=== PATIENT | male | born 1950 | race Caucasian/White ===

== ENCOUNTER 2017-01-05 07:12 | Inpatient (IN) | payer MEDICARE, OTHER ==
[~2017-01-05] VITALS: Ht 180.3 cm; Wt 77.1 kg
--- NOTE | 2017-03-06 15:32 | NUR ---
HAVE ATTEMPTED TO REACH PT BY PHONE, I WAS NOT AVAILABLE WHEN HE WAS HERE FOR PREADMIT, MULTIPLE ATTEMPTS MADE. MESSAGES LEFT CALLS NOT RETURNED.
--- NOTE | 2017-03-06 15:41 | NUR ---
PREADMIT PT CARE NOTE THIS IS A 66 YEAR OLD MALE THAT IS SCHEDULED TO HAVE A RIGHT TOTAL KNEE REPLACEMENT ON 03/09/[address] MELVI RODRIGUEZ. 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 THERE ARE 3 STEPS INTO THE 5TH WHEEL. STATES IT HAS A WALK IN SHOWER AND HANDHELD SHOWER HEAD AND A SEAT IN IT. PT STATES HE HAS HIS OWN FRON WHEELED WALKER THAT HE WILL BRING WITH HIM. PT STATES HE DID ATTEND [facility] OP PT [facility] AND IS PLANNING ON GOING TO [facility] OP PT WHEN HE GOES HOME FROM THE HOSPITAL. PT STATES HE ALREADY HAS HIS FIRST APPT SET UP FOR 03/17/17 AT 0730. PT DENIES FURTHER NEEDS, OR QUESTIONS, WILL FOLLOW PT DURING HIS STAY IN HOSPITAL. 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
--- NOTE | 2017-03-08 16:39 | NUR ---
Per PCP chart notes patient takes no chronic medications. Will verify at admittance
[2017-03-09] MEDS ORDERED: VITAMIN C100 MG PO (06:04)
[2017-03-09] MEDS ORDERED: IRON18 MG PO (06:04)
--- NOTE | 2017-03-09 08:58 | NUR ---
03/09/17 0858 Karen Higuera 1296-PATIENT ARRIVED TO PACU ON 6L MASK O2 SAT 100% PATIENT AWAKE DENIES PAIN OR NAUSEA. REPORTS NUMBNESS TO LEGS. SPINAL LEVEL AT L1. PALPABLE RIGHT PULSE GOOD CAP REFILL. CRYO CUFF PLACED. DRESSING CDI.
--- NOTE | 2017-03-09 09:40 | NUR ---
PT ARRIVED TO ROOM 116 AT THIS TIME, ALERT AND ORIENT AT THIS TIME. NO PAIN OR NAUSEA. SPOUSE AT BEDSIDE.
--- NOTE | 2017-03-09 11:43 | NUR ---
PT REPORTS NO PAIN OR NAUSEA AT THIS TIME. CMS INTACT AT THIS TIME. GOOD CAP REFILL BILAT FEET/TOES
--- NOTE | 2017-03-09 13:09 | NUR ---
PATIENT RESTING IN BED. FRESH ICE WATER GIVEN. ICE IN CRYO. CALL BUTTON IN REACH NO OTHER NEEDS AT THIS TIME.
--- NOTE | 2017-03-09 14:49 | NUR ---
PT BLADDER SCANNED FOR 945ML IN BLADDER, NO URGE TO VOID WILL PLACE MILLER CATH PER STANDING ORDER
--- NOTE | 2017-03-09 15:37 | NUR ---
16 YORUBA MILLER CATH PLACED 9ML STERILE WATER PLACED TO BULB. PT TOLERATED WELL. DRAINING WELL WNL. 900ML RETURNED IMMEDIATELY. PT UP IN RECLIENR AT THIS TIME. TOLERATING REGULAR DIET WELL NO NAUSEA. DRESSING CDI
--- NOTE | 2017-03-09 17:27 | NUR ---
PT TO ROOM 116 AT 0940 THIS AM. HE HAS BEEN ALERT AND ORIENTED THROUGHOUT SHIFT. NO NAUSEA, TOLERATING REGULAR DIETARY WELL. NO ITCHING, NO PAIN TO REPORT OVER SHIFT. HE HAS BEEN UP WITH PHYSICAL THERAPY, UP IN RECLINER NOW. MILLER PLACED DUE TO BLADDER SCAN OF 945ML. PT TOLERATED WELL. DRESSING CLEAN, DRY, INTACT. CRYO CUFF/TEDS/HEELS/SCDS IN PLACE.
--- NOTE | 2017-03-09 20:11 | NUR ---
PT UP IN CHAIR, WATCHING TV. SALINE LOCKED IV. PT HAS NO COMPLAINTS.
--- NOTE | 2017-03-09 20:58 | NUR ---
PT ASSESSMENT COMPLETE. PT DENIES ANY PAIN, N/V, SOB. SATS 99% ON ROOM AIR PER CONTINUOUS PULSE OXIMETER. PT NOW SALINE LOCKED, IV FLUSHES WELL, PATENT AND INTACT. DRESSING TO RIGHT KNEE IS C/D/I, PEA-SIZED SHADOWING NOTED TO MEPILEX DRESSING. CRYO CUFF/SCD/TEDS IN PLACE. PT REFUSING HEEL PROTECTORS. PT AMBULATED FROM CHAIR TO BED WITH SBA USING FWW, STEADY ON FEET, AMBULATES WELL. MILLER IN PLACE, ORANGE COLORED URINE DRAINING WELL. CALL LIGHT WITHIN REACH. PT DENIES ANY FURTHER NEEDS AT THIS TIME.
--- NOTE | 2017-03-09 23:15 | NUR ---
PT WAKES EASILY WHEN STAFF WALK IN ROOM. SCHEDULED ANCEF GIVEN, IV PATENT AND INTACT. DRESSING TO KNEE IS C/D/I, UNCHANGED. CRYO CUFF/TEDS/SCD IN PLACE. PT RATES PAIN 1-2/10, STATES TOLERABLE AND DENIES ANY NEED FOR PRN PAIN MEDICATION. PT DENIES ANY ITCHING. SATS 98% ON ROOM AIR PER CONTINUOUS PULSE OXIMETER. MILLER DRAINING ORANGE COLORED URINE. CALL LIGHT WITHIN REACH. PT DENIES ANY FURTHER NEEDS AT THIS TIME.
--- NOTE | 2017-03-10 02:30 | NUR ---
PT WOKE EASILY WHEN I WALKED IN THE ROOM. PT RATES PAIN 2-3/10, SCHEDULED TORADOL AND OXYCODONE GIVEN. DRESSING TO RIGHT KNEE IS C/D/I, UNCHANGED. CRYO CUFF REFILLED AND IN PLACE. TEDS/SCD IN PLACE. CALL LIGHT WITHIN REACH. PT DENIES ANY FURTHER NEEDS AT THIS TIME.
--- NOTE | 2017-03-10 05:19 | NUR ---
PT HAD AN UNEVENTFUL NIGHT. PT RATES PAIN 1-3/10, SCHEDULED TORADOL AND OXYCODONE GIVEN. PT HAS DENIED ANY NEED FOR PRN PAIN MEDICATION THIS SHIFT. PT TOLERATING REGULAR DIET WELL. DRESSING TO KNEE IS C/D/I, HAS PEA-SIZED SHADOWING NOTED TO MEPILEX, UNCHANGED THIS SHIFT. CRYO CUFF/TEDS/SCD IN PLACE. PT ON ROOM AIR, PULSE OX IN PLACE, SATS 98-99%. MILLER DRAINING WELL, QUANTITY SUFFICIENT, WILL BE DC'D THIS AM. IV SALINE LOCKED. PT AMBULATING WITH SBA USING FWW, TOLERATING AMBULATION WELL.
--- NOTE | 2017-03-10 08:43 | NUR ---
PT UP TO RECLINER THIS AM, CONSUMED 100% OF BREAKFAST REPORTS PAIN INCREASED TO 3-4/10 WITH ACTIVITY. PT ADMINSTERED SCHEDULED OXYCODONE 5MG PO AND ONE TAB NORCO PRN.PT WILL BE UP WITH PHYSICAL THERAPY IN THE NEXT HOUR. PT ALERT AND ORIENTED. DISCUSSED WITH PT CONCERNS ABOUT STEPS AT [place] HE LIVES.
--- NOTE | 2017-03-10 09:58 | OR ---
[facility] [address], [place] [address] Signed PREOPERATIVE DIAGNOSIS Severe degenerative joint disease, right knee. POSTOPERATIVE DIAGNOSIS Severe degenerative joint disease, right knee. PROCEDURE PERFORMED Right total knee arthroplasty with computer navigation. SURGEON: Sim Morales MD CHECK EXAMINER: MAYKEL Black ANESTHESIA: Spinal. BLOOD LOSS: Minimal. TOURNIQUET TIME: 65 minutes. IMPLANTS Kamille triathlon size 6 with a 9 mm insert and a 38 mm patella. BRIEF HISTORY Casie is a 66-year-old gentleman with progressive worsening of bilateral arthritis. Risks and benefits were discussed with him of operative intervention after conventional treatment had failed and he elected to proceed. DESCRIPTION OF PROCEDURE Once consent was obtained, he was taken to the operating room. After adequate anesthesia, he was placed on operating table. All downside pressure points well padded. Hip bump was placed. The right leg was placed in well-padded proximal thigh tourniquet. The leg was prepped and draped in a standard sterile fashion and exsanguinated using Esmarch bandage. Tourniquet inflated to 250 mmHg. Standard anterior approach through curved incision was taken through skin and subcutaneous tissue. Median parapatellar arthrotomy was performed. The infrapatellar fat pad was excised. The MCL was elevated to the posterior medial corner. The medial meniscus was pretty much absent. ACL was transected. PCL was found to be intact. Anterior horn lateral meniscus was transected. The navigation guide was pinned to the distal femur and the femur was registered with the computer. The distal cutting block was then set to the mechanical axis and the distal femoral cut was made. The femur sized to a 6, the AP cutting block was then pinned in line with epicondylar axis and the anterior posterior chamfer cuts were made. Osteophytes removed. Electronically Signed By: SIM MORALES MD 03/10/17 075 Electronically Signed By: SIM MORALES MD 03/11/17 0741 PATIENT NAME: CASIE DOYLE OPERATIVE REPORT DATE OF : 46 PHYSICIAN: SIM MORALES MD REPORT #: [id number] REPORT IS CONFIDENTIAL AND NOT TO BE RELEASED WITHOUT AUTHORIZATION [facility] [address] [place] [id number] Signed Attention was turned to proximal tibia. The navigation guide was pinned and the cutting block was pinned in neutral alignment. The bone was excised after cutting the tibia with care taken to protect the patellar tendon and MCL. The posterior osteophytes removed off the femur. Posterior release performed. Flexion-extension gaps were sized and found to be symmetric at 9. The knee was taken through range of motion and found to be stable after placement of the trials. The patella was cut sized and drilled for 38 mm patella. The femoral lug holes were drilled and the tibial was finished using the keel punch. The trials were then removed. The bone surfaces were pulse lavaged, packed with dry Ray-Fuad. Cement was mixed and reached proper consistency, displaced all bone surfaces and all implants. Tibia was impacted into position 1st followed by the femur. The polyethylene was snapped into position and all excess cement was removed. The knee was extended and nicely loaded. The patella was clamped and again all excess cement was removed. The cement was allowed to harden. Once it hardened sufficiently, the knee was flexed and the remaining cement was removed using osteotomes. The knee was pulse lavaged at intervals throughout the procedure. A total of 3 L antibiotic irrigation was used. The periarticular soft tissues were injected with 100 mL Ropivacaine and Toradol mixture. The arthrotomy was then closed using #1 Stratafix subcutaneous tissue with 0 Stratafix and skin with paul. Wound was dressed with a Mepilex Ag dressing, ABD and Peyman wrap. He tolerated the procedure well. All sponge, needle, instrument counts were correct. Sim Morales MD BA/Radhal /[id number] Electronically Signed By: SIM MORALES MD 03/10/17 0751 Electronically Signed By: SIM MORALES MD 03/11/17 0741 PATIENT NAME: CASIE DOYLE OPERATIVE REPORT DATE OF : 46 PHYSICIAN: SIM MORALES MD REPORT #: [id number] REPORT IS CONFIDENTIAL AND NOT TO BE RELEASED WITHOUT AUTHORIZATION
--- NOTE | 2017-03-10 11:18 | NUR ---
PATIENT UP TO BATHROOM TO TRY TO VOID. FRESH WATER GIVEN. ICE IN CRYO. NO OTHER NEEDS AT THIS TIME.
--- NOTE | 2017-03-10 12:26 | NUR ---
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 HE IS ALERT, ORIENTED AND PAIN IS NOT AN ISSUE NOW. HE HAS HAD MORNING P.T., AND IS PLANNING ON AFTERNOON SESSION. TIRE FIXER IN TO DO VITALS, WILL RETURN. EXTENDED A BLESSING
--- NOTE | 2017-03-10 13:28 | NUR ---
PT UP AMBULATING IN HALLS WITH PHYSICAL THERAPY. REPORTS THAT HE IS FEELING THE URGE TO VOID AND WILL ATTEMPT AFTER WORKING WITH PHYSICAL THERAPY
--- NOTE | 2017-03-10 14:37 | NUR ---
PATIENT SITTING UP IN BED WITH BY HIS SIDE. VOIDED 250MLS. CALL BUTTON IN REACH.ICE WATER ON TABLE ICE IN CRYO.
--- NOTE | 2017-03-10 14:49 | NUR ---
PT WAS ABLE TO VOID 200ML.ALSO HAD BM
--- NOTE | 2017-03-10 14:58 | NUR ---
PT REPORTS PAIN IS LIKE 1-2/10 AT REST.
--- NOTE | 2017-03-10 17:49 | NUR ---
PT REQUEST PAIN COVERAGE, PT GIVEN ONE TAB NORCO AT THIS TIME, PT NOT HAPPY THAT TWO NORCO NOT ADMINISTERED. WILLMONITOR FOR EFFECTIVENESS AND SEDATION PT HAS BEEN SLEEPING MOST OF SHIFT
--- NOTE | 2017-03-10 17:59 | NUR ---
PT TOELRATING REGULAR DIET NO NAUSEA, GOOD PAIN COVERAGE. ONE PERSON STANDBY ASSIST WITH [employer]. WORKED WITH PHYSICAL THERAPY X2, COMPLETED STAIRS. VOIDING WELL NOW. DRESSING HAS VERY SMALL SHADOW AT DISTAL PORTION OF ARTURO WRAP. CRYO CUFF/SCDS/TEDS/HEELS ON. HAD BM TODAY.
--- NOTE | 2017-03-10 18:49 | NUR ---
PT IS SITTING UP IN BED JUST FINISHED EATING DINNER PT DID NOT NEED ANYTHING ELSE
--- NOTE | 2017-03-10 19:30 | NUR ---
PT ASSESSMENT COMPLETE. PT RATES PAIN 4/10, DENIES PRN MEDICATION AT THIS TIME. SATS 99% ON ROOM AIR. PT SALINE LOCKED, IV PATENT AND INTACT. DRESSING TO RIGHT KNEE HAS NOTED PEA-SIZED SHADOWING TO MIDDLE OF MEPILEX AND SMALL AREA OF SHADOWING NOTED TO DISTAL PORTION OF DRESSING, OTHERWISE C/D/I. CRYO CUFF/TEDS/SCD IN PLACE. PT VOIDING WELL IN URINAL. PT DENIES ANY N/V, SOB. CALL LIGHT WITHIN REACH. PT DENIES ANY FURTHER NEEDS AT THIS TIME.
--- NOTE | 2017-03-10 23:00 | NUR ---
PT SLEEPING, RR EVEN AND UNLABORED. PT APPEARS COMFORTABLE AT THIS TIME. URINAL AT BEDSIDE, PT VOIDING WELL. CALL LIGHT WITHIN REACH. CRYO CUFF/TEDS/SCD IN PLACE.
--- NOTE | 2017-03-11 01:20 | NUR ---
PT CALLED REQUESTING PAIN MEDICATION. PT RATES RIGHT KNEE PAIN 5/10, SCHEDULED OXYCODONE AND 1 TAB PRN NORCO GIVEN. DRESSING TO KNEE IS UNCHANGED, SHADOWING NOTED TO MEPILEX. CRYO CUFF REFILLED AND IN PLACE. TEDS/SCD IN PLACE. PT VOIDING WELL IN URINAL. CALL LIGHT WITHIN REACH. PT DENIES ANY FURTHER NEEDS AT THIS TIME.
--- NOTE | 2017-03-11 03:09 | NUR ---
PT RATES PAIN IN RIGHT KNEE 2/, SCHEDULED TORADOL GIVEN. PT DENIES ANY FURTHER NEEDS AT THIS TIME. CALL LIGHT WITHIN REACH.
--- NOTE | 2017-03-11 04:34 | NUR ---
PT SLEEPING, RR EVEN AND UNLABORED. PT APPEARS COMFORTABLE AT THIS TIME. CALL LIGHT WITHIN REACH. CRYO CUFF/TEDS/SCD IN PLACE.
--- NOTE | 2017-03-11 06:51 | NUR ---
PT HAD AN UNEVENTFUL NIGHT. SLEPT MOST OF NIGHT. RECEIVED PRN NORCO x1, OTHERWISE ONLY RECEIVED SCHEDULED TORADOL AND OXYCODONE. DRESSING HAS SMALL AMOUNT OF SHADOWING NOTED TO MEPILEX AND DISTAL PORTION OF ARTURO WRAP. PT AMBULATES WITH SBA USING FWW, TOLERATES WELL. PT DENIED ANY N/V THIS SHIFT, TOLERATING PO WELL. VOIDING WITHOUT DIFFICULTY. HAD BM THIS SHIFT. CRYO CUFF/TEDS/SCD IN PLACE. PT PLANS TO DC HOME TODAY.
--- NOTE | 2017-03-11 07:40 | NUR ---
BEDSIDE REPORTE RECEIVED FROM BRITTANY. ASSUMING CARE AT THIS TIME. PATIENT RESTING IN BED REPORTED 5/10 PAIN IN THE RIGHT LEG. DR RODRIGUEZ WAS IN ROOM EARLIER TO SEE AND DISCUSS PLAN OF CARE WITH PATIENT. PLAN TO DC HOME TODAY.
[2017-03-11] MEDS ORDERED: XARELTO10 MG PO (08:01)
[2017-03-11] MEDS ORDERED: HYDROCODON-ACE1 EA11 PO (08:01)
[2017-03-11] MEDS ORDERED: OXYCODONE HCL5 MG PO (08:02)
[2017-03-11] MEDS ORDERED: MIRALAX17 GM PO (08:02)
--- NOTE | 2017-03-11 08:05 | NUR ---
PATIENT SITTING IN BED EATING BREAKFAST. PATIENT WAS MEDICATED FOR PAIN. DRESSING ON RIGHT KNEE REMOVED BY DR RODRIGUEZ. ALL YOLANDA IN PLACE, DRY BLOOD NOTED OVER THE YOLANDA. PERIPHERAL PULSES PALPABLE. NO ACUTE DISTRESS.
--- NOTE | 2017-03-11 09:51 | NUR ---
PATIENT AWAKE IN BED. FILLED CRYO CUP. CLEANED ROOM AND EMTYED GARBAGE. CHANGED PATIENTS GOWN DUE TO BLOOD FROM INCISION. LET NURSE LEE ANN KNOW. CALL LIGHT IN REACH.
--- NOTE | 2017-03-11 12:11 | NUR ---
CALL TO PATIENT AT HOME. PATIENT WAS ABLE TO REMOVE HIS IV, APPLY A PRESSURE DRESSING. PATIENT DENIED ANY BLEEDING OR PAIN AT IV INSERTION SITE. PATIENT REPORTED, "I'VE TAKEN OUT MAY IV'S IN THE PAST, I KNOW HOW TO DO IT."
--- NOTE | 2017-03-11 14:00 | NUR ---
FAXED CHART NOTES TO [facility] OP PT THAT INCLUDED FACESHEET, H AND P, OP NOTE, CONSULT, MEDS, OT AND PT EVAL AND NOTES.
--- NOTE | 2017-03-12 11:28 | DS ---
[facility] [address] [place], [place] [address] Signed DATE OF DISCHARGE: 03/11/17 ADMISSION DIAGNOSIS: Degenerative joint disease, right knee. DISCHARGE DIAGNOSIS: Degenerative joint disease, right knee. PROCEDURE PERFORMED: Right total knee arthroplasty. BRIEF HISTORY Casie is a 66-year-old gentleman with progressive worsening of his arthritis. He had undergone nonoperative treatment without substantial relief. Risks and benefits of operative treatment discussed with him. He elected to proceed. Once consent was obtained, he was taken to the operating room and underwent the above-named procedure. He tolerated this well. He was taken to the recovery room and subsequently to the orthopedic floor. He was placed on Oxycodone q.6h. and Hydrocodone, which managed his pain well. He was seen by Physical Therapy, able to ambulate up and down the hallway, up and down the stairs by the day of discharge. He was kept on DVT prophylaxis with SCDs, TEDs, and Xarelto 10 mg p.o. daily. He will be discharged to home on these medications in addition to his routine home meds. He will be seen by outpatient physical therapy earlier next week. He will follow up with me in 14 days. Should he have any problems, he will notify me immediately. Sim Morales MD BA/Stuart /[id number] Electronically Signed By: SIM MORALES MD 03/12/17 1128 PATIENT NAME: CASIE DOYLE DISCHARGE SUMMARY DATE OF : 46 PHYSICIAN: SIM MORALES MD REPORT #: [id number] REPORT IS CONFIDENTIAL AND NOT TO BE RELEASED WITHOUT AUTHORIZATION
[2017-04-10] MEDS ORDERED: METOPROLOL TART25 MG PO (10:48)
[2017-04-10] MEDS ORDERED: ASPIRIN EC325 MG PO (10:49)
== END 2017-03-11 11:00 | disposition home or self-care (01) | DRG 470 ==
LOC: DSVR 03-09 05:45 → MS 03-09 05:45
PROVIDERS: ADMIT Specialist
PROC: 3E0T3CZ (ICD-10-PCS; 2017-03-09)
PROC: 0SRC0J9 Replacement of Right Knee Joint with Synthetic Substitute, Cemented, Open Approach (ICD-10-PCS; principal; 2017-03-09 06:45)
DX: M17.11 Unilateral primary osteoarthritis, right knee (principal); G89.18 Other acute postprocedural pain; F17.210 Nicotine dependence, cigarettes, uncomplicated; Z71.6 Tobacco abuse counseling
CPT/HCPCS: 01402; 36415; 51798; 64447; 64450; 76942; 80048; 85025; 94762; 97110; 97116; 97161; 99406; C1713; C1776; J0690; J1100; J1885; J2274; J2405; J2704; J2795; J3010; J7120

== ENCOUNTER 2017-04-20 09:14 | Emergency (ER) | payer MEDICARE, OTHER ==
[~2017-04-20] VITALS: Ht 180.3 cm; Wt 74.2 kg
[~2017-04-20 09:14] MED LIST: ASPIRIN EC325 MG PO; HYDROCODON-ACE1 EA11 PO; IRON18 MG PO; METOPROLOL TART25 MG PO; MIRALAX17 GM PO; OXYCODONE HCL5 MG PO; VITAMIN C100 MG PO; XARELTO10 MG PO
[2017-04-20] MEDS ORDERED: TOPROL XL50 MG PO (10:19)
--- NOTE | 2017-04-20 20:34 | EKG ---
[facility] [address] [facility] [place] [address] Signed Atrial fibrillation with rapid ventricular response with premature ventricular or aberrantly conducted complexes Left anterior fascicular block Abnormal ECG When compared with ECG of 09-APR-2017 11:13, No significant change was found Confirmed by AURA DAVIES MD ([id number]) on 04/20/2017 8:33:58 PM Electronically Signed By: AURA DAVIES MD 04/20/17 2034 PATIENT NAME: CASIE DOYLE MARISSA Electrocardiogram DATE OF : 46 PHYSICIAN: AURA DAVIES MD REPORT #: [id number] REPORT IS CONFIDENTIAL AND NOT TO BE RELEASED WITHOUT AUTHORIZATION
== END 2017-04-20 10:39 | disposition home or self-care (01) ==
LOC: ED 09:14
DX: M79.604 Pain in right leg (principal); I48.91 Unspecified atrial fibrillation; Z87.891 Personal history of nicotine dependence; Z88.5 Allergy status to narcotic agent; Z79.899 Other long term (current) drug therapy; Z79.82 Long term (current) use of aspirin
CPT/HCPCS: 73560; 93005; 93010; 99283

== ENCOUNTER 2017-05-04 08:30 | Observation (INO) | payer MEDICARE, OTHER ==
[~2017-05-04] VITALS: Ht 180.3 cm; Wt 78.0 kg
[~2017-05-04 08:30] MED LIST changes: +TOPROL XL50 MG PO
--- NOTE | 2017-05-04 10:59 | NUR ---
05/04/17 1059 Josy Lee 1051 - pt arrived to pacu, opa in place. pt responding to stimuli
--- NOTE | 2017-05-04 11:56 | NUR ---
PT TO FLOOR FROM PACU, TO ROOM 112 VIA BED, ACCOMPANIED BY KAYLA CONSULTING SALES EXECUTIVE AND DAUGHTER AND . ARRIVED TO FLOOR AT 1150. RECIEVED BEDSIDE REPORT FROM TATO GARZA. PEDAL PULSES STRONG, CAPILARY REFILL LESS THAN 3 SECONDS, DRESSING TO RIGHT KNEE C/D/I. PT ABLE TO MOVE TOES AND FEET, IS ABLE TO FEEL WHEN TOES AND FEET ARE TOUCHED, BUT REPORTS THAT SENSATION IS STILL SOMEWHAT DIMINISHED. DENEIS PAIN, DENIES NAUSEA.
--- NOTE | 2017-05-04 12:00 | NUR ---
PATIENT IN ROOM CRYO ON. CALL BUTTON IN REACH. RN IN ROOM. FRESH ICE WATER GIVEN.
--- NOTE | 2017-05-04 12:59 | NUR ---
PT IN BED, HOB ELEVATED, TALKING WITH DAUGHTER AND . DENIES PAIN OR NAUSEA, IS ABLE TO MOVE FEET AND TOES, PEDAL PULSES EASILY PALPABLE. RIGHT KNEE DRESSING C/D/I, BRACE IN PLACE. CAPILARY REFILL LESS THAN 3 SECONDS. IS ABLE TO FEEL TOUCH TO FEET, TOES, REPORTS SENSATION REMAINS SLIGHTLY DIMINISHED.
--- NOTE | 2017-05-04 13:55 | NUR ---
PT DENIES PAIN, DENIES NAUSEA. AWAKE, ALERT, ORIENTED X 4. ATE 100% OF REGULAR LUNCH. ABLE TO MOVE FEET AND TOES. REPORTS FEET AND TOES HAVE SOMEWHAT DIMINISHED SENSATION, BUT HE IS ABLE TO FEEL DULL TOUCH. SPINAL IS RESOLVING.
--- NOTE | 2017-05-04 14:41 | NUR ---
PATIENT SITTING UP IN BED TALKING TO . FRESH ICE WATER GIVEN. ICE IN CRYO. CALL BUTTON IN REACH. NO OTHER NEEDS AT THIS TIME.
--- NOTE | 2017-05-04 16:00 | NUR ---
PATIENT SITTING UP IN BED WATCHING TV. CALL BUTTON IN REACH.
--- NOTE | 2017-05-04 18:26 | NUR ---
PATIENT SITTING UP IN BED WATCHING TV. CALL BUTTON IN REACH. FRESH ICE WATER GIVEN. ICE IN CRYO. NO OTHER NEEDS AT THIS TIME.
--- NOTE | 2017-05-04 19:50 | NUR ---
RECEVIED REPORT FROM DAY RNJUANIS. PT AWAKE, AND WATCHING TV. CALL LIGHT WITHIN REACH.
--- NOTE | 2017-05-04 21:30 | NUR ---
ASSESSMENT COMPLETED. PT STATES HE CAN FEEL HIS LEGS, FEEL TOUCH, ABLE TO MOVE LEGS. INQUIRED ABOUT HIM MOVING HIS RIGHT LEG, HE STATES THAT THE "PT PERSON TOLD HIM TO DO WHAT HE IS DOING". RT LEG HAS BRACE IN PLACE, BOTH LEGS WITH HEEL PROTECTORS. LT LEG WITH IFRAH HOSE AND SCD IN PLACE. PT DENIES PAIN AT THIS TIME. MILLER PATENT WITH CLARI/ORANGE URINE. STATES HE COULDN'T PEE CAUSE HE COULDN'T FEEL DUE TO THE EPIDURAL. ACEWRAP RT KNEE IN PLACE, WITH CRYCUFF IN PLACE. CALL LIGHT WITHIN REACH. NO OTHER NEEDS.
--- NOTE | 2017-05-04 22:01 | NUR ---
PT WATCHING TV AT THIS TIME. DENIES PAIN OR NEEDS. CALL LIGHT WITHIN REACH.
--- NOTE | 2017-05-04 23:50 | NUR ---
PT LIGHTS OFF, WELL TV. RESP EVEN AND UNLABORED.
--- NOTE | 2017-05-05 02:19 | NUR ---
CRYO CUFF REFILLED.
--- NOTE | 2017-05-05 02:21 | NUR ---
PT WOKE EASILY. STATES HE HAS BEEN SLEEPING OFF AND ON. HAS BEEN DOING HIS "EXCERCISES" WHEN HE IS AWAKE. SUGGESTED HE TAKE IT EASY AND GET SOME SLEEP, HE REPLIED THAT PT WANTED A "100" OF THESE SPECIFIC LEG EXCERSISES DONE. REMINDED HIM SLEEP IS GOOD TOO. DENIES PAIN IN RT KNEE. DRESSING REMAINS INTACT, WITH ICE/CRYOCUFF IN PLACE. HEEL PROTECTORS BILAT, WITH SCD ON LT LEG WELL IFRAH HOSGelacio. PT STATES THAT HIS LEGS ARE NOT NUMB OR TINGLY. STATES THE FEELING CAME BACK COUPLE HOURS AGO. URINE REMAINS CLARI/ORANGE. CALL LIGHT WITHIN REACH, HAS NO OTHER NEEDS AT THIS TIME.
--- NOTE | 2017-05-05 04:15 | NUR ---
PT WITH EYES CLOSED, RESP EVEN AND UNLABORED.
--- NOTE | 2017-05-05 06:18 | NUR ---
PT AWAKE AND VISITING. STATES THAT HE THOUGHT FEELING WAS BACK IN KNEE EARLIER, BUT NOW SAYS KNEE IS FEELING TINGLY ON THE LATERAL SIDE OF THE KNEE, CAN FEEL PRESSURE ON TOP OF KNEE BUT DENIES PAIN. SCD AND IFRAH ON LT LEG, HEEL PROTECTOR ON BOTH WITH ACEWRAP IN PLACE AND BRACE ON THE RIGHT KNEE. PAUL PUT OUT 625 THIS SHIFT.
--- NOTE | 2017-05-05 06:28 | NUR ---
REFILLED CRYO CUFF AND ICE WATER.
--- NOTE | 2017-05-05 07:00 | NUR ---
CONTACTED DR RODRIGUEZ TO GET CLARIFICATION IF HE WANTED THE PAUL DC'D TODAY. RECEIVED ORDER TO DC PAUL.
--- NOTE | 2017-05-05 07:27 | NUR ---
MILLER REMOVED AT THIS TIME. PT TOLERATED WELL. 9ML STERILE WATER REMOVED FROM BULB.
--- NOTE | 2017-05-05 08:05 | OR ---
[facility] [address], [place] [address] Signed DATE OF PROCEDURE: 05/04/17 PREOPERATIVE DIAGNOSIS: Left quad tendon rupture. POSTOPERATIVE DIAGNOSIS: Left quad tendon rupture. PROCEDURE PERFORMED Repair of quad tendon, left total knee. Cultures, deep. SURGEON: Sim Morales MD [employer] TEACHER: Micheline Muñoz PA-C. Micheline was present for the entire surgery and was critical for positioning, retraction, and wound closure. ANESTHESIA: Spinal. BLOOD LOSS: Minimal. TOURNIQUET TIME: 60 minutes. SPECIMENS The deep cultures and synovial fluid panel were sent from the OR; however, no results were obtained. BRIEF HISTORY Casie is a 67-year-old gentleman who underwent total knee arthroplasty about 3 weeks ago. Rehabbing well until he sustained a fall and had progressive worsening active extension of the knee. Ultrasound confirmed a quad tendon rupture. Risks and benefits of operative treatment discussed with him and he elected to proceed. Because there is an association with deep infection, we did also discuss deep cultures and the possibility for need to wash out and polyethylene exchange. He understood and wished to proceed. DESCRIPTION OF PROCEDURE Once consent was obtained, he was taken to the operating room. After adequate anesthesia, he was placed on operating table. All downside pressure points were well padded. A well-padded proximal thigh tourniquet was placed along with a hip bump. The leg was then prepped and draped in standard sterile fashion. Leg was exsanguinated using Esmarch bandage. Tourniquet inflated to 250 mmHg. Previous incision was marked out and upper two-third of this incision was carried through skin and subcutaneous tissue. The defect was palpable. The defect was encountered immediately. Prior to incision, we did Electronically Signed By: SIM MORALES MD 05/05/17 0805 PATIENT NAME: CASIE DOYLE OPERATIVE REPORT DATE OF : 46 PHYSICIAN: SIM MORALES MD REPORT #: [id number] REPORT IS CONFIDENTIAL AND NOT TO BE RELEASED WITHOUT AUTHORIZATION [facility] [address], [place] [address] Signed aspirate 20 mL of straw-colored fluid. This was sent off for synovial fluid panel and culture. The extensor mechanism was identified and the quad tendon was isolated and then the flaps were developed. All necrotic tissue was debrided as we went. The rupture was approximately 8 cm long. It started in the superior medial corner of the patella and extended proximally. There was no evidence of infection. Deep tissue cultures were taken and sent to the lab. The tendon ends were freshened and the knee was washed out with 3 L of antibiotic irrigation. We then injected the periarticular soft tissues. We did wait for the synovial fluid panel to come back; however, it still has not come back. The synovial layer was also developed. The synovium was then closed using 0 Stratafix. The tendon was then closed using #2 FiberWire. Two drill holes were placed in the superior medial quadrant of the patella, avoiding the patellar component. The tendon was repaired quite tightly, was stable with no gaping up to 90 degrees of flexion. We then closed the subcutaneous tissue with #1 strata fix, skin with 2-0 nylon using an interrupted horizontal mattress suture. The wound was dressed with Mepilex Ag dressing, ABD, and Peyman wrap. He was placed in a hinged knee brace at 0-30 degrees. Taken to recovery room in satisfactory condition. All sponge, needle, instrument counts were correct. Sim Morales MD BA/Stuart /[id number] cc: Javier Lisa MD Electronically Signed By: SIM MORALES MD 05/05/17 0805 PATIENT NAME: CASIE DOYLE MARISSA OPERATIVE REPORT DATE OF : 46 PHYSICIAN: SIM MORALES MD REPORT #: [id number] REPORT IS CONFIDENTIAL AND NOT TO BE RELEASED WITHOUT AUTHORIZATION
[2017-05-05] MEDS ORDERED: NUCYNTA50 MG PO (08:19)
[2017-05-05] MEDS ORDERED: HYDROMORPHONE HC4 MG PO (08:19)
--- NOTE | 2017-05-05 08:34 | NUR ---
Pt. up to chair, elevated leg with pillow, placed cryo back on knee,pt finished breakfast, set him up with fresh water, ordered him a root beer, and call light in place
--- NOTE | 2017-05-05 08:37 | NUR ---
PT UP TO RECLINER, CONSUMED 100% OF BREAKFAST. REPORTS PAIN 1-2/10 SAID NO NEED FOR PAIN COVERAGE AT THIS TIME. NO NAUSEA, FLATUS POSITIVE. STANDBY ASSIST WITH FWW, BRACE TO RIGHT KNEE, CRYO CUFF, DRESSING CDI
--- NOTE | 2017-05-05 10:00 | NUR ---
PT UP AMBUALTING IN HALLS WITH PHYSICAL THERAPY
--- NOTE | 2017-05-05 10:34 | NUR ---
PT HAD 75ml OUT WHEN THEY TOOK OUT THE MILLER AND HAS NOT BEEN ABLE TO VOID SINCE THEN. I ASKED HIM IF HE WAS READY TO TRY AND HE SAID HE DOESNT FEEL LIKE HE HAS TO YET.
--- NOTE | 2017-05-05 12:51 | NUR ---
CHECKED ON PT TO SEE IF HE NEEDED ANYTHING. SAID HE IS FINE, AND FELT LIKE HE COULD VOID. SET THE URINAL IN REACH FOR HIM
--- NOTE | 2017-05-05 13:37 | NUR ---
bladder scanned patient for >1L. dr butts called. orders received for flomax and rodas cath overnight.
--- NOTE | 2017-05-05 14:09 | NUR ---
PT SITTING IN CHAIR, WAITING FOR LUNCH. HE HOPES TO BE DC'D TODAY. PT IS ALERT, ORIENTED AND HAS A VERY POSITIVE ATTITUDE. EXTENDED A BLESSING, HE THANKED ME FOR THE VISIT
--- NOTE | 2017-05-05 14:58 | NUR ---
PT REPORTS PAIN 3/10 AT THIS TIME, MILLER DRAINING WELL. PT ADMINISTERED SCHEDULED NUCYNTA AT THIS TIME.
--- NOTE | 2017-05-05 15:51 | NUR ---
FILLED PTS CRYO CUFF UP WITH ICE, HELPED HIM CONNECT TO THE INTERNET. HE IS DOING FINE. IS AT BEDSIDE VISITING WITH HIM. HE HAS ORDERED DINNER.
--- NOTE | 2017-05-05 19:00 | NUR ---
SHIFT REPORT RECIEVED. PATIENT RESTING IN BED. STATES PAIN IS WELL CONTROLLED AT THIS TIME. CRYO IN PLACE WITH SUFFICIENT ICE. CALL LIGHT IN REACH.
--- NOTE | 2017-05-05 19:25 | NUR ---
PT HAS BEEN UP AMBULATING IN HALLS WITH PHYSICAL THERAPY, TOLERATED WELL. ONE PERSON STANDBY ASSIST. TOLERATING DIET WELL, NO NAUSEA. FAILED VOIDING TRIAL TODAY, GAVE ORDER TO REPLACE MILLER-START FLOMAX. PT HAS HAD GOOD PAIN MANAGEMENT OVER SHIFT. PRODUCING GOOD QWUANTITY OF URINE OUT, FLATUS POSITIVE. DRESSING CDI. CMS INTACT. GOOD CAP REFILL.
--- NOTE | 2017-05-05 19:45 | NUR ---
PATIENT ASSESSMENT COMPLETED AND EVEING MEDS GIVEN PER ORDER. PATIENT IS AAOX3. REPORTS PAIN AT 3/10, DENIES NEED FOR PRN PAIN MEDS. LUNGS ARE CLEAR. NO NAUSEA, GOOD APPETITE, BOWEL SOUNDS ACTIVE. MILLER IN PLACE, OUTPUT QS. RIGHT KNEE IS ARTURO WRAPPED, IN BRACE, EVELATED AND THE CRYO IS IN PLACE WITH SUFFICIENT ICE. SCD AND IFRAH HOSE ON LEFT LEG. PEDAL PULSES ARE STRONG AND EVEN BILATERALLY. NO NUMBNESS OR TINGLING IN LOWER EXTREMITIES. PATIENT DENIES FEELING ANY PALPITATIONS TODAY. PATIENT DENIES FURTHER NEEDS AT THIS TIME. CALL LIGHT IN REACH.
--- NOTE | 2017-05-05 21:48 | NUR ---
PATIENT RESTING IN BED, WATCHING TV. STATES THAT PAIN HAS SLIGHTLY INCREASED BUT WOULD LIKE TO WAIT UNTIL AT LEAST 2200 FOR PRN PAIN MEDS. CRYO IS IN PLACE ON RIGHT KNEE WITH BRACE. SCD AND IFRAH HOSE ON LEFT LEG. CALL LIGHT IN REACH.
--- NOTE | 2017-05-05 22:16 | NUR ---
PATIENT SITTING UP ON SIDE OF THE BED. IS FINDING IT DIFFICULT TO GET COMFORTABLE WITH THE BRACE ON. RATED PAIN AT 5/10. PRN PAIN MEDS GIVEN. CRYO IN PLACE. PATIENT REPOSITIONED FOR COMFORT. RESTING BACK IN BED. DENIES FURTHER NEEDS AT THIS TIME. CALL LIGHT IN REACH.
--- NOTE | 2017-05-06 00:10 | NUR ---
PATIENT RESTING IN BED. EYES CLOSED. RR16. CRYO AND BRACE IN PLACE ON RIGHT KNEE. SCD & IFRAH HOSE ON RIGHT LEG. CALL LIGHT IN REACH.
--- NOTE | 2017-05-06 02:02 | NUR ---
PATIENT RESTING IN BED. EYES CLOSED. RR16. CALL LIGHT IN REACH.
--- NOTE | 2017-05-06 02:27 | NUR ---
SCHEDULED PAIN MEDS GIVEN PER ORDER. PATIENT APPEARED TO BE SLEEPING, AROUSED EASILY TO VOICE. PATIENT RATED PAIN AT 4/10. CRYO AND BRACE IN PLACE ON RIGHT KNEE. IFRAH HOSE AND SCD ON LEFT LEG. MILLER IN PLACE, OUTPUT QS. PATIENT HAS NO REQUEST. CALL LIGHT IN REACH.
--- NOTE | 2017-05-06 04:36 | NUR ---
PATIENT RESTED WELL THROUGHOUT THE SHIFT. PRN PAIN MEDS GIVEN X1. CRYO IN PLACE ON RIGHT KNEE WITH BRACE. ARTURO WRAP IN PLACE AND NO DRAINAGE NOTED. PATIENT IS SBA W/FWW. TOE TOUCH ON RIGHT LEG. ELEVATE EXTREMITY IN BED. MILLER TO BE DC AT 0600. TOLERATING REGULAR DIET.
--- NOTE | 2017-05-06 05:05 | NUR ---
PATIENT RESTING IN BED. EYES CLOSED. RR 16. CALL LIGHT IN REACH.
--- NOTE | 2017-05-06 06:18 | NUR ---
CRYO CUFF AND ICE WATER REFILLED.
--- NOTE | 2017-05-06 06:29 | NUR ---
PAUL MAYO AT AT 0625. PATIENT TOLERATED WELL. PATIENT UP TO THE BATHROOM. SBA W/FWW. TOE TOUCH ON RIGHT LEG. PATIENT USES WALKER AND FOLLOWS DIRECTIONS WELL. PATIENT IN BATHROOM, WILL CALL WHEN DONE.
--- NOTE | 2017-05-06 06:39 | NUR ---
ASSISTED PATIENT FROM BATHROOM TO CHAIR. PATIENT IS HAVING COFFEE. CALL LIGHT WITHIN REACH.
--- NOTE | 2017-05-06 07:20 | NUR ---
BEDSIDE REPORT RECEIVED FROM TATO COLLIER. PT AWAKE, SITTING UP IN CHAIR, ON PERSONAL COMPUTER. PT HAS BRACE ON, LEGS ELEVATED. PT STATES PAIN IS 3.5/10 AT THIS TIME, REFUSES PRN PAIN MEDICATIONS, STATES PAIN IS TOLERABLE. PT HAS NOT URINATED, HAS WATER AND COFFEE. CALL LIGHT WITH PT. WILL CONTINUE TO MONITOR.
--- NOTE | 2017-05-06 08:00 | NUR ---
PATIENT SITTING UP IN CHAIR EATING BREAKFAST. CALL BUTTON IN REACH. CRYO ON. FRESH ICE WATER GIVEN. NO OTHER NEEDS AT THIS TIME.
--- NOTE | 2017-05-06 08:05 | NUR ---
ADMINISTERED SCHEDULED NUCYNTA, PT REPORTING PAIN OF 3-4/10 IN RIGHT LEG. PT UP IN CHAIR, EATING BREAKFAST, LEG ELEVATED. PT STATES HE DOES NOT FEEL NEED TO VOID AT THIS TIME, MADE PLAN TO TRY TO VOID AT 0900. CALL LIGHT WITH PT, WILL CONTINUE TO MONITOR.
--- NOTE | 2017-05-06 08:40 | NUR ---
PATIENT UP TO BATHROOM TO VOID. BED BATH AND ORAL CARE DONE.
--- NOTE | 2017-05-06 08:52 | NUR ---
PT CALLED AND HAD VOIDED 200ML LIGHT YELLOW URINE. WOULD NOW LIKE TO GO HOME. WILL WORK ON PAPERWORK
[2017-05-06] MEDS ORDERED: TAMSULOSIN HCL0.4 MG PO (08:58)
--- NOTE | 2017-05-06 09:07 | NUR ---
PT ASSESSMENT COMPLETE. PT UP IN CHAIR, LUNGS CLEAR THROUGHOUT ALL LOBES. PT HAS HAD TWO BMS TODAY, BOWEL TONES ACTIVE X 4. PT RIGHT LEG WRAPPED WITH ARTURO WRAP, BRACE IN PLACE, CRYO CUFF ON. CSM INTACT BILATERALLY UPPER AND LOWER EXTREMITIES, NO EDEMA NOTED. PT STATES PAIN IS 4/10 IN RIGHT LEG. PT HAS CALL LIGHT, WILL CONTINUE TO MONITOR.
--- NOTE | 2017-05-06 09:51 | NUR ---
VERBAL AND WRITTEN INSTRUCTIONS FOR DISCHARGE PROVIDED TO PT BY RN AND PHARMACIST JAE. PT HAD NO ADDITIONAL QUESTIONS. PT BELONGINGS RETURNED TO PT. IV SITE D/C WNL. VITAL SIGNS STABLE. PT WAITING FOR FOR RIDE HOME. CALL LIGHT IN REACH.
== END 2017-05-06 10:55 | disposition home or self-care (01) ==
LOC: DS 08:30 → MS 11:35 → DS 11:35 → MS 11:35 → DS 11:35 → MS 05-06 10:55
PROVIDERS: ADMIT Specialist
PROC: 3E0T3BZ Introduction of Anesthetic Agent into Peripheral Nerves and Plexi, Percutaneous Approach (ICD-10-PCS; 2017-05-04)
PROC: 0LQM0ZZ Repair Left Upper Leg Tendon, Open Approach (ICD-10-PCS; principal; 2017-05-04 11:30)
DX: S76.112A Strain of left quadriceps muscle, fascia and tendon, initial encounter (principal); F17.200 Nicotine dependence, unspecified, uncomplicated; I10 Essential (primary) hypertension; G89.18 Other acute postprocedural pain; Z88.5 Allergy status to narcotic agent; W19.XXXA Unspecified fall, initial encounter; Z96.652 Presence of left artificial knee joint; Z79.82 Long term (current) use of aspirin; Z79.899 Other long term (current) drug therapy
CPT/HCPCS: 01250; 64447; 76942; 87070; 87075; 87205; 89051; 89060; 94762; 96374; 96376; 97110; 97116; 97161; G0378; G8978; G8979; G8980; J0690; J1100; J1885; J2250; J2274; J2405; J2704; J2765; J2795; J3010; J7120

== ENCOUNTER 2017-09-24 06:55 | Day surgery (SDC) | payer MEDICARE, OTHER ==
[~2017-09-24] VITALS: Ht 180.3 cm; Wt 88.9 kg
[~2017-09-24 06:55] MED LIST changes: +HYDROMORPHONE HC4 MG PO; +NUCYNTA50 MG PO; +TAMSULOSIN HCL0.4 MG PO
--- NOTE | 2017-09-24 10:20 | NUR ---
PT ALERT, ORIENTED AND SUPPORTED BY HIS . PT SEEMED PREPARED, COMMENTED ON HOW MUCH HE APPRECIATED DR VIGIL'S CALL LAST NIGHT. MADE PT AWARE OF THE ORDER OF EVENTS TO FOLLOW. PT REQUESTED PRAYER, WILL FOLLOW NEEDED
--- NOTE | 2017-09-24 12:13 | NUR ---
09/24/17 Kaiden3 Karen Higuera 1209-PATIENT ARRIVED TO PACU ON 4L OM AWAKE DENIES PAIN OR NAUSEA. DROWSY RR EVEN. SR WITH PAC.
[2017-09-24] MEDS ORDERED: HYDROMORPHONE HC4 MG PO (12:27)
[2017-09-24] MEDS ORDERED: IBUPROFEN600 MG PO (12:27)
[2017-09-24] MEDS ORDERED: MAPAP325 MG PO (12:27)
--- NOTE | 2017-09-24 12:48 | OR ---
[facility] [address], [place] [address] Signed DATE OF OPERATION: 09/24/2017 SURGEON: Coral Vigil MD PREOPERATIVE DIAGNOSES: 1. Right posterior thoracic soft tissue mass (6 cm). 2. Right moravian area soft tissue mass (2 cm). POSTOPERATIVE DIAGNOSES: 1. 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 2. A 2 cm right moravian lipoma. PROCEDURES: 1. Excision of subfascial mass central posterior thorax. 2. Excision of lipomatous mass of right moravian area. ANESTHESIA: Local with monitored anesthesia care, Dhaval Segura CRNA. Local anesthesia is 0.25% Marcaine with epinephrine. INDICATION: This 67-year-old white man is a patient of Dr. Javier Lisa of [place], [place]. He has a soft tissue mass in his central posterior thorax, which is increasingly uncomfortable for him. Additionally, notes a soft tissue mass of the right moravian area. Another mass was noted at the angle of mandible on the left side. An ultrasound was performed of that to ascertain. It did not represent submandibular gland or parotid gland neoplasm. The ultrasound performed yesterday shows the lesion to be consistent with lipoma. That lesion is not particularly symptomatic and is located in the submandibular space posteriorly. He was admitted at this time to undergo excision of posterior thoracic mass as well as the mass over the right moravian area, but we will hold in advance for the time being the submandibular mass on the left. He understands as does his the risks of bleeding, infection, recurrent mass, and failure to cure his pain symptoms. FINDINGS: In the posterior thorax area, the soft tissue mass was clearly consistent with a lipoma. It was extended down to the posterior thoracic fascia. It was at least 6 cm in length and about 4 cm in width and 2 cm in thickness. The lesion in the right moravian area was behind the temporal artery. The temporal artery Electronically Signed By: CORAL VIGIL MD 09/24/17 1248 PATIENT NAME: CASIE DOYLE OPERATIVE REPORT DATE OF : 46 REPORT #: [id number] PHYSICIAN: CORAL VIGIL MD PCP: JAVIER LISA MD REPORT IS CONFIDENTIAL AND NOT TO BE RELEASED WITHOUT AUTHORIZATION [facility] [address], [place] [address] Signed was dissected free and good hemostasis was assured at the completion of the procedure with complete excision of that mass as well. It was most consistent with lipoma as well. DESCRIPTION OF PROCEDURE: The patient was brought to the operating room and placed in the lateral position right side up. He was given intravenous sedation with propofol infusional technique. Preoperative antibiotic Ancef was given. Posterior thorax was prepared with a chlorhexidine solution and draped sterilely. A 0.25% Marcaine with epinephrine was injected along the line of skin tension and a field block anesthetic administered in this way. An incision was made mostly vertically oriented along the line of skin tension. Dissection was carried through the dermis. It was initially not easy to distinguish the capsule of the lipomatous mass from the subcutaneous tissue with meticulous care. This was ultimately established. Dissection was begun on the left side 1st and taken down to the posterior muscular fascia. A smooth walled lipomatous appearing mass was noted. Dissection was then undertaken to the right side similarly identifying the appropriate plane. The lesion was freed from the posterior thoracic fascia with electrocautery. Hemostasis was assured in the central portion with 2-0 Vicryl suture. The lesion once excised measured approximately 6 cm x 4 cm and at least 2 cm in thickness. Irrigation was undertaken ultimately assuring hemostasis. The wound was closed with interrupted 2-0 Vicryl in deep subcutaneous layer and running subcuticular 3-0 Vicryl for the skin. A drain was deemed unnecessary. Steri-Strips were applied as was a Mepilex silver sponge dressing and an OpSite. The drapes were taken down and separate preparation undertaken the moravian area. Clipping was undertaken as appropriate and the area was prepared with a chlorhexidine solution and draped sterilely. Once again, a 0.25% Marcaine with epinephrine was injected locally along the line of skin tension. A small incision made and dissection carried through the dermis. Using sharp dissection, the mass was dissected free from surrounding tissues. The twigs of the temporal artery were noted to be intimately associated with the mass. This was dissected free with all due care, ultimately excising the mass completely. Hemostasis was assured with 2-0 Vicryl in the region of some branches from the temporalis artery. Once hemostasis was assured, the wound was closed with interrupted 2-0 Vicryl in deep dermal layer and Steri-Strips were applied. The patient was ultimately allowed to emerge from sedation and taken to recovery room in good condition having suffered no complications. Sponge, needle, and instrument counts reported as correct x3. Coral Vigil MD Electronically Signed By: CORAL VIGIL MD 09/24/17 1248 PATIENT NAME: CASIE DOYLE MARISSA OPERATIVE REPORT DATE OF : 46 REPORT #: [id number] PHYSICIAN: CORAL VIGIL MD PCP: JAVIER LISA MD REPORT IS CONFIDENTIAL AND NOT TO BE RELEASED WITHOUT AUTHORIZATION [facility] [address] [place] [address] Signed /JACQUELIN /[id number] cc: Javier Lisa MD Copies: JAVIER LISA MD ~ Electronically Signed By: CORAL VIGIL MD 09/24/17 1248 PATIENT NAME: CASIE DOYLE OPERATIVE REPORT DATE OF : 46 REPORT #: [id number] PHYSICIAN: CORAL VIGIL MD PCP: JAVIER ILSA MD REPORT IS CONFIDENTIAL AND NOT TO BE RELEASED WITHOUT AUTHORIZATION
--- NOTE | 2017-09-24 20:30 | EKG ---
[facility] [address] [facility] [place] [address] Signed Sinus rhythm with occasional premature ventricular complexes Left axis deviation Inferior infarct , age undetermined Abnormal ECG When compared with ECG of 20-APR-2017 09:29, Sinus rhythm has replaced Atrial fibrillation Vent. rate has decreased BY 36 BPM Inferior infarct is now present ST now depressed in Inferior leads T wave inversion now evident in Inferior leads Confirmed by ROBERTH CRABTREE MD ([id number]) on 09/24/2017 8:30:14 PM Electronically Signed By: ROBERTH CRABTREE MD 09/24/172029 PATIENT NAME: CASIE DOYLE Electrocardiogram DATE OF : 46 PHYSICIAN: ROBERTH CRABTREE MD REPORT #: [id number] REPORT IS CONFIDENTIAL AND NOT TO BE RELEASED WITHOUT AUTHORIZATION
== END 2017-09-24 13:22 | disposition home or self-care (01) ==
LOC: DS 06:55
PROVIDERS: Surgery
PROC: 0JB70ZZ Excision of Back Subcutaneous Tissue and Fascia, Open Approach (ICD-10-PCS; 2017-09-24)
PROC: 0JB10ZZ Excision of Face Subcutaneous Tissue and Fascia, Open Approach (ICD-10-PCS; principal; 2017-09-24 09:15)
DX: D17.1 Benign lipomatous neoplasm of skin and subcutaneous tissue of trunk (principal); D17.0 Benign lipomatous neoplasm of skin and subcutaneous tissue of head, face and neck; M19.90 Unspecified osteoarthritis, unspecified site; Z88.5 Allergy status to narcotic agent; Z96.651 Presence of right artificial knee joint; Z98.890 Other specified postprocedural states; Z79.899 Other long term (current) drug therapy
CPT/HCPCS: 00300; 88304; 88305; 88307; 93005; 93010; J0690; J1644; J2704; J3010; J7120

== ENCOUNTER 2018-01-15 15:27 | Emergency (ER) | payer MEDICARE, OTHER ==
[~2018-01-15] VITALS: Ht 180.3 cm; Wt 88.9 kg
[~2018-01-15 15:27] MED LIST changes: +IBUPROFEN600 MG PO; +MAPAP325 MG PO
== END 2018-01-15 16:51 | disposition home or self-care (01) ==
LOC: ED 15:27
DX: H53.9 Unspecified visual disturbance (principal); Z87.891 Personal history of nicotine dependence; Z88.5 Allergy status to narcotic agent
CPT/HCPCS: 99282

== ENCOUNTER 2018-09-03 13:50 | Emergency (ER) | payer MEDICARE, OTHER ==
[~2018-09-03] VITALS: Ht 180.3 cm; Wt 83.9 kg
--- NOTE | 2018-09-03 15:57 | EKG ---
[facility] [address] [facility] [place] [address] Signed Atrial flutter with variable AV block Left axis deviation Inferior infarct (cited on or before 24-SEP-2017) Possible Anterior infarct , age undetermined Abnormal ECG When compared with ECG of 24-SEP-2017 09:39, Significant changes have occurred Confirmed by ROBERTH CRABTREE MD ([id number]) on 09/03/2018 3:56:43 PM Electronically Signed By: ROBERTH CRABTREE MD 09/03/18 1557 PATIENT NAME: CASIE DOYLE Electrocardiogram DATE OF : 46 PHYSICIAN: ROBERTH CRABTREE MD REPORT #: [id number] REPORT IS CONFIDENTIAL AND NOT TO BE RELEASED WITHOUT AUTHORIZATION
[2018-09-03] MEDS ORDERED: TOPROL XL50 MG PO ×2 (16:05→16:06)
== END 2018-09-03 16:22 | disposition home or self-care (01) ==
LOC: ED 13:50
DX: I48.92 Unspecified atrial flutter (principal); I48.91 Unspecified atrial fibrillation; Z87.891 Personal history of nicotine dependence; Z88.5 Allergy status to narcotic agent; Z79.899 Other long term (current) drug therapy
CPT/HCPCS: 71045; 80053; 80061; 84484; 85025; 85610; 85730; 93005; 93010; 96374; 99285-25

== ENCOUNTER 2018-09-09 08:36 | Emergency (ER) | payer MEDICARE, OTHER ==
[~2018-09-09] VITALS: Ht 180.3 cm; Wt 83.9 kg
--- OUTSIDE RECORDS SUMMARY | 2018-09-09 08:40 | XMS ---
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 EPascale VISIT COUNT (12 MO.) 3 [facility] TOTAL 3 NOTE: Visits indicate total known visits. 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
[2018-09-09] MEDS ORDERED: DICLOFENAC POTA50 MG PO (08:47)
--- NOTE | 2018-09-09 13:26 | EKG ---
[facility] [address] [place] [address] Signed Sinus bradycardia Left axis deviation T wave inversion in Lead 3 and aVF, consider inferior ischemia When compared with ECG of 09/03/2018 Sinus rhythm has replaced atrial flutter. T wave inversions are new. Confirmed by ROBERTH CRABTREE MD ([id number]) on 09/09/2018 1:26:21 PM Electronically Signed By: ROBERTH CRABTREE MD 09/09/18 1326 PATIENT NAME: CASIE DOYLE MARISSA Electrocardiogram DATE OF : 46 PHYSICIAN: ROBERTH CRABTREE MD REPORT #: [id number] REPORT IS CONFIDENTIAL AND NOT TO BE RELEASED WITHOUT AUTHORIZATION
[2018-09-09] MEDS ORDERED: COZAAR50 MG PO (13:51)
[2018-09-09] MEDS ORDERED: XARELTO20 MG PO (13:51)
== END 2018-09-09 14:10 | disposition home or self-care (01) ==
LOC: ED 08:36
DX: I11.0 Hypertensive heart disease with heart failure (principal); I50.9 Heart failure, unspecified; I48.0 Paroxysmal atrial fibrillation; Z87.891 Personal history of nicotine dependence; Z88.5 Allergy status to narcotic agent; Z79.899 Other long term (current) drug therapy
CPT/HCPCS: 71046; 80053; 83880; 84484; 85025; 85379; 93005; 93010; 93306; 99285-25

== ENCOUNTER 2019-06-20 15:22 | Emergency (ER) | payer MEDICARE, OTHER ==
[~2019-06-20] VITALS: Ht 180.3 cm; Wt 84.4 kg
[~2019-06-20 15:22] MED LIST changes: +COZAAR50 MG PO; +DICLOFENAC POTA50 MG PO; +XARELTO20 MG PO
--- OUTSIDE RECORDS SUMMARY | 2019-06-20 15:24 | XMS ---
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 Care History Medical/Surgical 09/14/2018 [facility] - Patient is currently established with [facility]. If patient is seen in the ED during business hours. Please contact CHWs at [facility]. Care Recommendation: This patient has had 5 or more Emergency Department visits in the last 12 months.\T\nbsp; Patient requires education on the scope and purpose of the ED as an acute care provider not a Primary Care Provider and should not be utilized for chronic conditions.\T\nbsp; These are guidelines and the provider should exercise clinical judgment when providing care. 09/10/2018 [facility] - CHW RECEIVED CASE MANAGEMENT CONSULT- HELP PATIENT WITH PCP. - CHW PROVIDED [facility] WITH ED VISIT NOTES AND REQUESTED FOR HIGH PRIORITY. - CLINIC STATED THEY ARE SCHEDULING OUT IN OCTOBER FOR ESTABLISHING CARE APTS, THEY WILL SEE IF THEY CAN GET PATIENT SET UP WITH [facility] FOR AN EARLIER APT. RECORDS HAVE TO BE REVIEWED FIRST BEFORE APT CAN BE SET. Robinson VISIT COUNT (12 MO.) 3 JUAN Pascal TOTAL 3 NOTE: Visits indicate total known visits. 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
[2019-06-20] MEDS ORDERED: ELIQUIS5 MG PO (15:33)
[2019-06-20] MEDS ORDERED: NITROFURANTOIN100 M1 PO (15:34)
--- NOTE | 2019-06-21 07:36 | EKG ---
[facility] [address] [facility] [place] [address] Signed Atrial fibrillation with rapid ventricular response Left axis deviation Septal infarct , age undetermined Abnormal ECG When compared with ECG of 09-SEP-2018 08:41, Significant changes have occurred Confirmed by AURA DAVIES MD ([id number]) on 06/21/2019 7:36:17 AM Electronically Signed By: AURA DAVIES MD 06/21/19 0736 PATIENT NAME: CASIE DOYLE MARISSA Electrocardiogram DATE OF : 46 PHYSICIAN: AURA DAVIES MD REPORT #: [id number] REPORT IS CONFIDENTIAL AND NOT TO BE RELEASED WITHOUT AUTHORIZATION
== END 2019-06-20 19:39 | disposition home or self-care (01) ==
LOC: ED 15:22
DX: I48.91 Unspecified atrial fibrillation (principal); N39.0 Urinary tract infection, site not specified; Z88.5 Allergy status to narcotic agent; Z79.899 Other long term (current) drug therapy
CPT/HCPCS: 36415; 71045; 80053; 83605; 83880; 84484; 85025; 85610; 85730; 93005; 93010; 96361; 96374; 99291; 99292; J7030

== ENCOUNTER 2019-06-28 10:35 | Emergency (ER) | payer MEDICARE, OTHER ==
[~2019-06-28] VITALS: Ht 180.3 cm; Wt 84.4 kg
[~2019-06-28 10:35] MED LIST changes: +ELIQUIS5 MG PO; +NITROFURANTOIN100 M1 PO
--- OUTSIDE RECORDS SUMMARY | 2019-06-28 10:38 | XMS ---
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 Care History Medical/Surgical 06/21/2019 [facility] Patient has follow up appt. with Dr. Aguero today 06/21/2019 09/14/2018 [facility] - Patient is currently established with [facility] [place] [facility]. If patient is seen in the ED during business hours. Please contact CHWs at [facility]. Care Recommendation: This patient has had 5 or more Emergency Department visits in the last 12 months.\T\nbsp; Patient requires education on the scope and purpose of the ED as an acute care provider not a Primary Care Provider and should not be utilized for chronic conditions.\T\nbsp; These are guidelines and the provider should exercise clinical judgment when providing care. 09/10/2018 [facility] - W RECEIVED CASE MANAGEMENT CONSULT- HELP PATIENT WITH PCP. - W PROVIDED [facility] WITH ED VISIT NOTES AND REQUESTED FOR HIGH PRIORITY. - CLINIC STATED THEY ARE SCHEDULING OUT IN OCTOBER FOR ESTABLISHING CARE APTS, THEY WILL SEE IF THEY CAN GET PATIENT SET UP WITH [facility] FOR AN EARLIER APT. RECORDS HAVE TO BE REVIEWED FIRST BEFORE APT CAN BE SET. [facility]. [facility] (12 MO.) [facility] NOTE: Visits indicate total known visits. ED/UCC VISIT TRACKING (12 MO.) [facility]28[facility]2019 10:[facility] COMPLAINT: - SOB 06/20/2019 15:22 [facility] [place] TYPE: Emergency COMPLAINT: - RAPID-IRREGULAR HEART RATE, HAS AFIB DIAGNOSES: - Shortness of breath - Allergy status to narcotic agent status - Urinary tract infection, site not specified - Other snf (current) drug therapy - Unspecified atrial fibrillation 09/09/2018 08:37 [facility] [place] TYPE: Emergency COMPLAINT: - CHEST PAIN/SOB/NAUSEA DIAGNOSES: - Personal history of nicotine dependence - Heart failure, unspecified - Paroxysmal atrial fibrillation - Other snf (current) drug therapy - Hypertensive heart disease with heart failure - Allergy status to narcotic agent status - Dyspnea, unspecified 09/03/2018 13:50 [facility] [place] TYPE: Emergency COMPLAINT: - CHEST PAIN/SHORTNESS OF BREATH DIAGNOSES: - Unspecified atrial fibrillation - Other snf (current) drug therapy - Allergy status to narcotic agent status - Personal history of nicotine dependence - Tachycardia, unspecified - Unspecified atrial flutter INPATIENT VISIT TRACKING (12 MO.) No inpatient visits to display in this time frame [email or web address]
[2019-06-28] MEDS ORDERED: BACTRIM DS TAB1 EACH PO (10:45)
--- NOTE | 2019-06-28 12:54 | EKG ---
[facility] [address] [facility] [address] [place] [address] Signed Atrial fibrillation with rapid ventricular response Left axis deviation Abnormal ECG When compared with ECG of 20-JUN-2019 15:32, Nonspecific T wave abnormality no longer evident in Anterior leads Confirmed by ROBERTH CRABTREE MD ([id number]) on 06/28/2019 12:54:18 PM Electronically Signed By: ROBERTH CRABTREE MD 06/28/19 1254 PATIENT NAME: CASIE DOYLE MARISSA Electrocardiogram DATE OF : 46 PHYSICIAN: ROBERTH CRABTREE MD REPORT #: [id number] REPORT IS CONFIDENTIAL AND NOT TO BE RELEASED WITHOUT AUTHORIZATION
[2019-06-28] MEDS ORDERED: TOPROL XL50 MG PO (13:55)
[2019-06-28] MEDS ORDERED: TOPROL XL100 MG PO ×2 (13:57→14:00)
== END 2019-06-28 14:23 | disposition home or self-care (01) ==
LOC: ED 10:35
DX: I48.91 Unspecified atrial fibrillation (principal); Z88.5 Allergy status to narcotic agent; Z79.899 Other long term (current) drug therapy; Z79.01 Long term (current) use of anticoagulants
CPT/HCPCS: 71045; 80053; 81001; 83735; 84484; 85025; 93005; 93010; 96360; 99285-25; J7030

== ENCOUNTER 2022-10-21 13:43 | Emergency (ER) | payer MEDICARE, BC ==
[~2022-10-21] VITALS: Ht 180.3 cm; Wt 84.4 kg
[~2022-10-21 13:43] MED LIST changes: +BACTRIM DS TAB1 EACH PO; +TOPROL XL100 MG PO
[2022-10-21] MEDS ORDERED: FINASTERIDE5 MG PO (13:54)
[2022-10-21] MEDS ORDERED: LOSARTAN POTASS25 MG PO (13:55)
[2022-10-21] MEDS ORDERED: BISOPROLOL FUMAR5 MG PO (13:55)
[2022-10-21] MEDS ORDERED: FLECAINIDE ACE100 MG PO (13:56)
[2022-10-21] MEDS ORDERED: TAMSULOSIN HCL0.4 MG PO (13:56)
--- NOTE | 2022-10-21 20:38 | EKG ---
[facility] [address] [place] [address] Signed Atrial flutter with variable AV block Left axis deviation Pulmonary disease pattern Abnormal ECG When compared with ECG of 28-JUN-2019 10:57, Atrial flutter has replaced Atrial fibrillation QRS duration has increased Confirmed by AURA DAVIES MD ([id number]) on 10/21/2022 8:38:41 PM Electronically Signed By: AURA DAVIES MD 10/21/222037 PATIENT NAME: CASIE DOYLE MARISSA Electrocardiogram DATE OF : 46 PHYSICIAN: AURA DAVIES MD REPORT #: [id number] REPORT IS CONFIDENTIAL AND NOT TO BE RELEASED WITHOUT AUTHORIZATION
== END 2022-10-21 16:15 | disposition home or self-care (01) ==
LOC: ED 13:43
DX: I48.0 Paroxysmal atrial fibrillation (principal); Z88.5 Allergy status to narcotic agent; Z79.01 Long term (current) use of anticoagulants; Z79.899 Other long term (current) drug therapy
CPT/HCPCS: 71045; 80053; 83735; 84436; 84443; 84484; 85025; 93005; 93010

== ENCOUNTER 2024-11-08 11:49 | Day surgery (SDC) | payer MEDICARE, BC ==
[~2024-11-08] VITALS: Ht 180.3 cm; Wt 82.7 kg
[~2024-11-08 11:49] MED LIST changes: +BISOPROLOL FUMAR5 MG PO; +CEFAZOLIN SODIUM 2 GM/20 ML SYR IV SCH; +FINASTERIDE5 MG PO; +FLECAINIDE ACE100 MG PO; +IBLOOD GLUCOSE TEST STRIP 1 EA TEST VI PRN; +LACTATED RINGER'S 1,000 ML IV SCH; +LIDOCAINE HCL 1% 5 ML SDV INJ ONE; +LOSARTAN POTASS25 MG PO; +MIDAZOLAM HCL 5 MG/5 ML VIAL IV PRN; +fentaNYL citrate 100 MCG/2 ML VIAL IV PRN
[2024-11-08] MEDS ORDERED: LOSARTAN POTASS50 MG PO (12:17)
[2024-11-08] MEDS ORDERED: LIPITOR20 MG PO (12:18)
[2024-11-08 12:19] VITALS: BP 138/88
[2024-11-08] MEDS ORDERED: fentaNYL citrate 100 MCG/2 ML VIAL ONE (14:46)
[2024-11-08] MEDS ORDERED: MIDAZOLAM HCL 5 MG/5 ML VIAL ONE (14:47)
--- NOTE | 2024-11-08 15:39 | NUR ---
11/08/24 1539 Karen Higuera 1534-PATIENT ARRIVED TO PACU ON 2L NC RR EVEN PATIENT AWAKE DENIES PAIN OR NAUSEA. ABDOMEN SOFT IVF INFUSING. AFIB HR 112. PATIENT REPOSITIONS SELF TO BACK HOB ELEVATED.
[2024-11-08 16:19] VITALS: BP 125/95
--- NOTE | 2024-11-09 11:03 | OR ---
[facility] [address] [place], [place] [address] Signed DATE OF OPERATION: 11/08/2024 SURGEON: Coral Vigil MD PREOPERATIVE DIAGNOSIS: Positive Cologuard test in May of 2022. POSTOPERATIVE DIAGNOSIS: Small adenomatous polyp of cecum and probable hyperplastic polyps of rectosigmoid. PROCEDURE: Total colonoscopy to cecum with cold morcellation polypectomy x4. ANESTHESIA: Intravenous sedation, fentanyl 100 mcg, Versed 6 mg. INDICATIONS: A 74-year-old white man patient of Dr. Aguero. He underwent Cologuard testing in May of 2022, which was positive. He has no family history of colon cancer and no prior history of polyps. He has had negative Cologuard test in the past. He does have atrial fibrillation and has a history of total knee replacement. He has had preoperative antibiotics and cessation of his Eliquis for 72 hours ago. He is now to undergo colonoscopy on the basis of the positive Cologuard test. He understands the risk of bleeding, infection, and perforation. FINDINGS: The prep was good. Complete colonoscopy was undertaken of the cecum with full intubation of the cecum. There was a small adenomatous appearing polyp of the proximal ascending colon at the junction of the cecum, which was excised with cold morcellation technique. Diverticula were noted to the sigmoid and left colon. There were what appeared to be polyps, possibly hyperplastic in the rectosigmoid. These were excised as well. There was no evidence of neoplasm proper and certainly no other abnormality. DESCRIPTION OF PROCEDURE: The patient was brought to the endoscopy suite and placed in lateral decubitus position, given intravenous sedation to the point of slurred speech and nystagmus. Digital rectal examination was normal. An Olympus video colonoscope was passed in the rectum and manipulated throughout the colon ultimately intubating the cecum itself. Ileocecal valve and appendiceal orifice Electronically Signed By: CORAL VIGIL MD 11/09/24 1103 PATIENT NAME: CASIE DOYLE OPERATIVE REPORT DATE OF : 46 REPORT #: [id number] PHYSICIAN: CORAL VIGIL MD PCP: DEIDRA AGUERO MD REPORT IS CONFIDENTIAL AND NOT TO BE RELEASED WITHOUT AUTHORIZATION [facility] [address] [place], [place] [address] Signed are normal. There was a small adenomatous appearing polyp in the cecum at the junction of the right colon, which was excised with cold morcellation technique. The scope was then withdrawn and examination throughout showed no sign of abnormality other than diverticulosis of the left colon and at the rectosigmoid several very small polyps, possibly hyperplastic. These were excised with cold morcellation technique, three in total. Further withdrawal showed no other abnormality of the rectum. Scope was removed. The patient was taken to the recovery room in good condition. CONCLUDING DIAGNOSIS: At least one adenomatous polyp, possibly more, now excised. PLAN: Recommend repeat colonoscopy in seven years or sooner if symptoms should develop. Recommend high-fiber diet based on diverticulosis. He will return to the ongoing care of Dr. Deidra Aguero. MD DELIA Sanchez/MATTL /[id number] cc: Deidra Aguero MD Copies: ~ Electronically Signed By: CORAL VIGIL MD 11/09/24 1103 PATIENT NAME: CASIE DOYLE OPERATIVE REPORT DATE OF : 46 REPORT #: [id number] PHYSICIAN: CORAL VIGIL MD PCP: DEIDRA AGUERO MD REPORT IS CONFIDENTIAL AND NOT TO BE RELEASED WITHOUT AUTHORIZATION
--- NOTE | 2024-11-10 09:24 | PATH ---
[facility] [address] [place], [place] [address] Signed SPECIMEN(S): A CECUM POLYP SPECIMEN(S): B RECTOSIGMOID POLYP SPECIMEN SOURCE: A. CECUM POLYP B. RECTOSIGMOID POLYP CLINICAL HISTORY: History of positive Cologuard, diverticulosis FINAL PATHOLOGIC DIAGNOSIS: A. Cecum, polypectomy: - Tubular adenoma B. Colon, rectosigmoid, polypectomy: - Hyperplastic polyp BRP MICROSCOPIC EXAMINATION: Histologic sections of all submitted blocks are examined by light microscopy. These findings, together with the gross examination, support the pathologic diagnosis. GROSS DESCRIPTION: A. The specimen, labeled and designated "Soy, cecum polyp," is received in formalin and consists of one white soft tissue fragment, 0.2 cm. Entirely submitted in (A1). B. The specimen, labeled and designated "Soy, rectosigmoid polyp," is received in formalin and consists of four white soft tissue fragments, ranging from 0.1-0.3 cm. Entirely submitted in (B1). VB (under the direct supervision of a pathologist) The Gross Description was prepared using a voice recognition system. The report was reviewed for accuracy; however, sound-alike word errors, addition and/or deletions may occur. If there is any question about this report, please contact Client Services. ADDITIONAL NOTES: Immunohistochemical and/or in situ hybridization studies if performed in this case included appropriate positive controls that reacted as expected. This test was developed and its performance characteristics determined by [facility]. It has not been cleared or approved by the U.S. Food and Drug Administration. The FDA has determined that PATIENT NAME: CASIE DOYLE PATHOLOGY DATE OF : 46 REPORT #: [id number] PHYSICIAN: MALIKA PATINO PCP: ELIZ LUCIANO MD REPORT IS CONFIDENTIAL AND NOT TO BE RELEASED WITHOUT AUTHORIZATION [address], [place] [address] Signed such clearance or approval is not necessary. This test is used for clinical purposes. It should not be regarded as investigational or for research. [facility] is certified under the Clinical Laboratory Improvement Amendments of 1988 (CLIA) as qualified to perform high complexity clinical laboratory testing. PERFORMING LABORATORY: Technical component was performed by [facility], [address] [place] [id number] (CLIA# [id number]). Professional interpretation was performed by [facility], [address] [place] [id number] (CLIA#: [id number]). Diagnostician: Mir Craig MD Pathologist Electronically Signed 11/10/2024 Copies: ~ PATIENT NAME: CASIE DOYLE PATHOLOGY DATE OF : 46 REPORT #: [id number] PHYSICIAN: MALIKA PATHOLOGY PCP: ELIZ LUCIANO MD REPORT IS CONFIDENTIAL AND NOT TO BE RELEASED WITHOUT AUTHORIZATION
== END 2024-11-08 16:17 | disposition home or self-care (01) ==
LOC: DS 11:49
PROVIDERS: ATTEND Surgery
PROC: 0DBN8ZX Excision of Sigmoid Colon, Via Natural or Artificial Opening Endoscopic, Diagnostic (ICD-10-PCS; 2024-11-08)
PROC: 0DBH8ZX Excision of Cecum, Via Natural or Artificial Opening Endoscopic, Diagnostic (ICD-10-PCS; principal; 2024-11-08 13:00)
DX: Z12.11 Encounter for screening for malignant neoplasm of colon (principal); D12.0 Benign neoplasm of cecum; I48.20 Chronic atrial fibrillation, unspecified; Z96.659 Presence of unspecified artificial knee joint
CPT/HCPCS: 99153; G0500; J0690; J2250; J3010; J7121